=== PATIENT | female | born 1950 | race Caucasian/White ===

== ENCOUNTER → 2017-08-31 | Outpatient (CLI) | payer OTHER | LOC: FIMAGING 15:04 | PROVIDERS: ATTEND Internal Medicine | DX: Z12.31 Encounter for screening mammogram for malignant neoplasm of breast (principal) ==

== ENCOUNTER → 2018-11-08 | Outpatient (CLI) | payer OTHER | LOC: EMCIMAGING 12:36 | PROVIDERS: ATTEND Internal Medicine | DX: Z12.31 Encounter for screening mammogram for malignant neoplasm of breast (principal); Z80.3 Family history of malignant neoplasm of breast | CPT/HCPCS: 77067-PN ==